=== PATIENT | female | born 1985 | race Caucasian/White ===

== ENCOUNTER 2021-01-17 08:53 | Emergency (ER) | payer OTHER ==
[~2021-01-17 08:53] MED LIST: NORCO 5-325 TA1 EACH PO; NORCO 7.5-3251 EACH PO; TORADOL 10 MG T10 MG PO; ZOFRAN4 MG PO
[2021-01-17] MEDS ORDERED: CYCLOBENZAPRINE10 MG PO (10:33)
[2021-01-17] MEDS ORDERED: NAPROSYN500 MG PO (10:33)
== END 2021-01-17 10:52 | disposition home or self-care (01) ==
LOC: ER1 08:53
DX: S76.011A Strain of muscle, fascia and tendon of right hip, initial encounter (principal); F17.210 Nicotine dependence, cigarettes, uncomplicated; Z90.49 Acquired absence of other specified parts of digestive tract; X50.0XXA Overexertion from strenuous movement or load, initial encounter
CPT/HCPCS: 96372; 99283; J1885